=== PATIENT | male | born 1970 | race Hispanic/Latino ===

== ENCOUNTER 2017-04-29 10:38 | Outpatient (CLI) | payer OTHER ==
[~2017-04-29 10:38] MED LIST: Iopamidol 370 76% 100 ML VIAL ONE
--- NOTE | 2017-04-29 14:17 | CT ---
CT OF CHEST WITH CONTRAST: CLINICAL HISTORY: Pulmonary nodule, followup. FINDINGS: There is a nodular subpleural density involving the lateral aspect of the superior segment left lower lobe accounting for prior radiographic opacity, which by CT imaging measures 12 mm in transverse laura meter. This nodule measured 6 mm craniocaudal. There is adjacent pleural-based irregularity. Bilat eral subpleural patchy opacification is present. There is punctate noncalcified nodularity of the po sterior, subpleural aspect of the right lower lobe. No pleural effusion or pneumothorax. There is n o adenopathy. There are no acute osseous abnormalities. IMPRESSION: A 12 x 6 mm subpleural pulmonary nodule involving the lateral aspect of the superior segment left low er lobe accounting for prior radiographic opacity. Recommend PET CT evaluation to further evaluate. Pulmonary medicine consultation is also recommended. POS: [facility]
== END 2017-04-29 10:39 | disposition home or self-care (01) ==
LOC: SCSCT 10:38
PROVIDERS: ATTEND Family Medicine
DX: R91.1 Solitary pulmonary nodule (principal)
CPT/HCPCS: 71260

== ENCOUNTER 2024-12-24 07:50 | Outpatient (CLI) | payer OTHER ==
[2024-12-24] MEDS ORDERED: Iopamidol 370 76% 100 ML VIAL ONE (14:31)
== END 2024-12-24 07:51 | disposition home or self-care (01) ==
LOC: CT 07:50
PROVIDERS: ATTEND Family Medicine
DX: R91.8 Other nonspecific abnormal finding of lung field (principal); J98.4 Other disorders of lung
CPT/HCPCS: 71260; Q9967

== ENCOUNTER 2025-01-29 17:20 | Observation (INO) | payer OTHER ==
[2025-01-29 17:38] LABS: #Basophils 0.06 10x3/uL (0.0-0.2); #Eosinophils 0.17 10x3/uL (0.0-0.7); #Monocytes 0.43 10x3/uL (0.11-0.59); #Neutrophils 4.61 10x3/uL (1.40-6.50); %Basophils 0.7 % (0.0-1.0); %Eosinophils 2.0 % (0.0-10.0); %Lymphocytes 38.2 % (21.0-51.0); %Monocytes 5.0 % (0.0-10.0); %Neutrophils 53.7 % (42.0-75.0); Hematocrit 41.3 % (42.0-52.0); Hemoglobin 13.9 g/dL (14.0-18.0); Mean Corpuscular Hemoglobin 28.9 pg (27.0-31.0); Mean Corpuscular Volume 85.9 fL (78.0-98.0); Platelet Count 186 10x3/uL (130-400); Red Blood Cell (RBC) Count 4.81 mill/uL (4.70-6.10); White Blood Cell (WBC) Count 8.57 10x3/uL (4.8-10.8)
[2025-01-29 17:55] LABS: ALT (SGPT) 25 U/L (Less than 45); AST (SGOT) 29 U/L (11-34); Albumin 4.3 g/dL (3.1-4.5); Alkaline Phosphatase 69 U/L (40-110); Anion Gap 14 mmol/L (10-20); BUN (Urea Nitrogen) 15 mg/dL (8.4-25.7); Bilirubin, Total 0.7 mg/dL (0.3-1.2); Calc. Creatinine Clearance 0 mL/min (70-130); Calcium 9.1 mg/dL (7.8-10.44); Carbon Dioxide 22 mmol/L (22-29); Chloride 106 mmol/L (98-107); Globulin 3.0 g/dL (2.4-3.5); Glucose 135 mg/dL (70-105); Potassium 3.0 mmol/L (3.5-5.1); Sodium 139 mmol/L (136-145)
[2025-01-29] MEDS ORDERED: Acetaminophen 500 MG TAB ONE (18:06)
[2025-01-29] MEDS ORDERED: Acetaminophen 325 MG TAB PO PRN (18:54)
[2025-01-29 20:32] VITALS: BMI 24.2
[2025-01-29] MEDS: NIFEdipine XL 30 MG ER.TAB PO SCH (21:29)
[2025-01-30 04:41] LABS: #Basophils 0.06 10x3/uL (0.0-0.2); #Eosinophils 0.28 10x3/uL (0.0-0.7); #Monocytes 0.67 10x3/uL (0.11-0.59); #Neutrophils 7.94 10x3/uL (1.40-6.50); %Basophils 0.5 % (0.0-1.0); %Eosinophils 2.4 % (0.0-10.0); %Lymphocytes 23.9 % (21.0-51.0); %Monocytes 5.7 % (0.0-10.0); %Neutrophils 67.1 % (42.0-75.0); Hematocrit 41.0 % (42.0-52.0); Hemoglobin 13.6 g/dL (14.0-18.0); Mean Corpuscular Hemoglobin 29.1 pg (27.0-31.0); Mean Corpuscular Volume 87.8 fL (78.0-98.0); Platelet Count 214 10x3/uL (130-400); Red Blood Cell (RBC) Count 4.67 mill/uL (4.70-6.10); White Blood Cell (WBC) Count 11.82 10x3/uL (4.8-10.8)
[2025-01-30 05:03] LABS: Anion Gap 8 mmol/L (10-20); BUN (Urea Nitrogen) 14 mg/dL (8.4-25.7); Calc. Creatinine Clearance 132 mL/min (70-130); Calcium 8.7 mg/dL (7.8-10.44); Carbon Dioxide 27 mmol/L (22-29); Chloride 107 mmol/L (98-107); Glucose 100 mg/dL (70-105); Potassium 3.7 mmol/L (3.5-5.1); Sodium 138 mmol/L (136-145)
[2025-01-30] MEDS: Fioricet 325/50/40 mg Tablet PO PRN (05:23)
[2025-01-30] MEDS: Losartan 25 MG TAB PO SCH (08:47)
[2025-01-30] MEDS: NIFEdipine XL 30 MG ER.TAB PO SCH (08:48)
[2025-01-30 11:27] VITALS: BP 135/80; TEMP 97
[2025-01-30] MEDS: Methocarbamol 500 MG TAB PO SCH (13:01)
== END 2025-01-30 14:50 | disposition home or self-care (01) ==
LOC: ERS 17:20 → OBS 18:17
PROVIDERS: ADMIT Internal Medicine; ATTEND Internal Medicine
DX: I10 Essential (primary) hypertension (principal); R51.9 Headache, unspecified; R07.89 Other chest pain; E87.6 Hypokalemia; Z90.49 Acquired absence of other specified parts of digestive tract; Z87.891 Personal history of nicotine dependence; Z79.899 Other long term (current) drug therapy
CPT/HCPCS: 36415; 70450; 71045; 80048; 80053; 83880; 84484; 85025; 93005; G0378